=== PATIENT | male | born 1985 | race African-American/Black ===

== ENCOUNTER 2021-05-11 18:32 | Emergency (ER) | payer SELFPAY ==
[~2021-05-11] VITALS: Ht 185 cm; Wt 105.0 kg
[2021-05-11] MEDS ORDERED: KETOROLAC 60 MG/2 ML VIAL IM ONE (19:15)
--- NOTE | 2021-05-11 19:21 | ED Lower Extremity ---
General Chief Complaint: Lower Extremity Stated Complaint: R FOOT BIG TOE PAIN Nursing Triage Note: PT TO ED W/ C/O RT GREAT TOE PAIN ONSET X3 DAYS, WORSE TODAY. PT REPORTS HE BROKE HIS TOE IN LONG TERM IN 2017 ET "IT SOMETIMES STARTS HURTING". PT DENIES INJURY AT THIS TIME. Source: patient Exam Limitations: no limitations History of Present Illness Date Seen by Provider: May 11, 2021 Time Seen by Provider: 19:20 Initial Comments Right great toe pain x3 days. no know injury. Onset: just prior to arrival Severity: moderate Pain/Injury Location: right 1st toe Method of Injury: unknown Allergies and Home Medications Allergies Coded Allergies: No Known Drug Allergies (Unverified , 05/11/21) Patient Home Medication List Home Medication List Reviewed: Yes Review of Systems Constitutional: see HPI; No chills, No fever EENTM: see HPI Respiratory: no symptoms reported Cardiovascular: no symptoms reported Genitourinary: no symptoms reported Musculoskeletal: see HPI Skin: no symptoms reported Psychiatric/Neurological: No Symptoms Reported Past Tvloxai-Mevncc-Fxfjek Hx Patient Social History Tobacco Use?: Yes Tobacco type used: Cigarettes Smoking Status: Current Everyday Smoker Use of E-Cig and/or Vaping dev: No Substance use?: No Alcohol Use?: No Pt feels they are or have been: No Past Medical History Surgery/Hospitalization HX: DENIED Physical Exam Vital Signs Vital Signs - First Documented 05/11/21 18:58 Temp 37.0 Pulse 119 Resp 20 B/P (MAP) 167/111 (129) Pulse Ox 98 Capillary Refill : Less Than 3 Seconds Height, Weight, BMI Height: '" Weight: lbs. oz. kg; 30.00 BMI Method: General Appearance: WD/WN, no apparent distress Neck: non-tender, full range of motion Respiratory: no respiratory distress, no accessory muscle use Hips: bilateral hip non-tender, bilateral hip normal inspection, bilateral hip normal range of motion Legs: bilateral leg non-tender, bilateral leg normal inspection, bilateral leg normal range of motion Knees: bilateral knee non-tender, bilateral knee normal inspection, bilateral knee normal range of motion Ankles: bilateral ankle non-tender, bilateral ankle normal inspection, bilateral ankle normal range of motion Feet: right foot other (The first MTP joint right foot there is some erythema, slight edema. This is likely podagra.) Neurologic/Psychiatric: alert, normal mood/affect, oriented x 3 Skin: normal color, warm/dry Progress/Results/Core Measures Results/Orders My Orders Orders - MONICA FISH APRN Foot, Right, 3 View (05/11/21 19:03) Ketorolac Injection (Toradol Injection) (05/11/21 19:15) Vital Signs/I&O 05/11/21 18:58 Temp 37.0 Pulse 119 Resp 20 B/P (MAP) 167/111 (129) Pulse Ox 98 Blood Pressure Mean: 129 Departure Impression Primary Impression: Podagra Disposition: 01 HOME, SELF-CARE Condition: Stable Departure-Patient Inst. Decision time for Depature: 19:25 Referrals: NO,LOCAL PHYSICIAN (PCP/Family) Primary Care Physician Patient Instructions: Gout, Low Purine Diet Add. Discharge Instructions: 1. Medication as directed follow-up with your doctor next week. All discharge instructions reviewed with patient and/or family. Voiced understanding. Scripts Prednisone (Prednisone) 20 Mg Tab 40 MG PO DAILY, #6 TAB 0 Refills Prov: MONICA FISH APRN 05/11/21 MONICA FISH APRN May 11, 2021 19:21
[2021-05-11] MEDS ORDERED: PRD20T PO (19:27)
--- NOTE | 2021-05-11 19:29 | Diagnostic Imaging Report ---
INDICATION: Great toe injury. COMPARISON: None. EXAMINATION: Three views of the right foot were obtained. FINDINGS: No fracture or dislocation. Articular surfaces are normal. No foreign body is seen. IMPRESSION: No fracture identified. Dictated by: Dictated on workstation # [id number]
[2021-05-11 20:09] VITALS: BP 165/115
== END 2021-05-11 20:10 | disposition home or self-care (01) ==
LOC: ER 18:38
DX: M10.9 Gout, unspecified (principal); F17.210 Nicotine dependence, cigarettes, uncomplicated
CPT/HCPCS: 73630

== ENCOUNTER 2022-03-24 16:55 | Emergency (ER) | payer SELFPAY ==
[~2022-03-24] VITALS: Ht 182 cm; Wt 113.0 kg
[~2022-03-24 16:55] MED LIST: PRD20T PO
[2022-03-24 17:01] VITALS: BP 166/107
--- NOTE | 2022-03-24 17:16 | ED General ---
General Chief Complaint: General Problems/Pain Stated Complaint: GOUT PAIN Nursing Triage Note: PT TO ED W/ C/O RT ANKLE PAIN R/T "GOUT" PER PT. PT ALSO C/O BILAT ANKLE SWELLING ONSET X"A FEW WEEKS". NO OTHER C/O VOICED. Source of Information: Patient, Family (girlfriend) Exam Limitations: No Limitations (JESSENIA CESAR MD) History of Present Illness Date Seen by Provider: March 24, 2022 Time Seen by Provider: 17:00 Initial Comments Patient is a 36-year-old male who presents to the emergency room with a chief complaint of right ankle pain over the course of the last 2 days. Patient states that he feels like it may have been coming on "a week or so". He states that he has been told he has gout in his toes. He has had swelling and pain in his ankles before and just assumed it was gout. He states he has never had any blood drawn or joint fluid removed to confirm the diagnosis. He cannot recall any triggers that might have caused the joint pain and swelling. His girlfriend who is at the bedside states at one point that he when he had ankle pain he was given a water pill and took that and the fluid went away. He denies shortness of breath or chest pain. He states he knows he has high blood pressure but he is never had an evaluation or treatment for it. He does smoke. No current chest pain or shortness of breath no abdominal pain nausea. No swelling in his legs, just pain and swelling in his right ankle. All other review of systems reviewed and negative except as stated. Timing/Duration: 1 Week Severity: Severe Modifying Factors: worse with Movement Associated Systoms: Denies Symptoms (JESSENIA CESAR MD) Allergies and Home Medications Allergies Coded Allergies: No Known Drug Allergies (Unverified , 05/11/21) Patient Home Medication List Home Medication List Reviewed: Yes (JESSENIA CESAR MD) Prednisone (Prednisone) 20 Mg Tab, 40 MG PO DAILY Prescribed by: MONICA FISH on 05/11/211926 Review of Systems Review of Systems Constitutional: see HPI EENTM: no symptoms reported Respiratory: no symptoms reported Cardiovascular: no symptoms reported Gastrointestinal: no symptoms reported Musculoskeletal: joint pain (right ankle) Skin: no symptoms reported Psychiatric/Neurological: No Symptoms Reported (JESSENIA CESAR MD) All Other Systems Reviewed Negative Unless Noted: Yes (JESSENIA CESAR MD) Past Ijehrfb-Fvahhi-Vjdvwi Hx Patient Social History Tobacco Use?: Yes Tobacco type used: Cigarettes Smoking Status: Current Everyday Smoker Use of E-Cig and/or Vaping dev: No Substance use?: No Alcohol Use?: No Pt feels they are or have been: No (JESSENIA CESAR MD) Past Medical History Surgery/Hospitalization HX: GOUT, HTN (JESSENIA CESAR MD) Physical Exam Vital Signs Vital Signs - First Documented 03/24/22 17:01 Temp 36.7 Pulse 112 Resp 20 B/P (MAP) 166/107 (126) Pulse Ox 99 O2 Delivery Room Air (MONICA FISH APRN) Vital Signs Capillary Refill : Less Than 3 Seconds (JESSENIA CESAR MD) Height, Weight, BMI Height: '" Weight: lbs. oz. kg; 34.00 BMI Method: General Appearance: No Apparent Distress, WD/WN Eyes: Bilateral Eye Normal Inspection, Bilateral Eye PERRL, Bilateral Eye EOMI HEENT: PERRL/EOMI Neck: Normal Inspection Respiratory: Lungs Clear, Normal Breath Sounds, No Accessory Muscle Use, No Respiratory Distress Cardiovascular: Regular Rate, Rhythm, Normal Peripheral Pulses, Tachycardia Gastrointestinal: Non Tender, Soft Extremity: Normal Capillary Refill, Normal Range of Motion, Other (edema right ankle. good ROM (he states it hurts); normal DP pulse. ankle is not red or warm) Neurologic/Psychiatric: Alert, Oriented x3, No Motor/Sensory Deficits, Normal Mood/Affect, deputy clerk II-XII Norm as Tested Skin: Normal Color, Warm/Dry (JESSENIA CESAR MD) Progress/Results/Core Measures Suspected Sepsis SIRS Temperature: Pulse: 112 Respiratory Rate: 20 Laboratory Tests 03/24/22 17:36: Blood Pressure 166 /107 Mean: 126 Laboratory Tests 03/24/22 17:36: (JESSENIA CESAR MD) Results/Orders Lab Results Laboratory Tests Test 03/24/22 17:36 Range/Units White Blood Count 8.2 4.3-11.0 10^3/uL Red Blood Count 4.88 4.30-5.52 10^6/uL Hemoglobin 12.8 L 13.3-17.7 g/dL Hematocrit 39 L 40-54 % Mean Corpuscular Volume 79 L 80-99 fL Mean Corpuscular Hemoglobin 26 25-34 pg Mean Corpuscular Hemoglobin Concent 33 32-36 g/dL Red Cell Distribution Width 14.2 10.0-14.5 % Platelet Count 267 130-400 10^3/uL Mean Platelet Volume 9.7 9.0-12.2 fL Immature Granulocyte % (Auto) 1 % Neutrophils (%) (Auto) 59 42-75 % Lymphocytes (%) (Auto) 26 12-44 % Monocytes (%) (Auto) 7 0-12 % Eosinophils (%) (Auto) 7 0-10 % Basophils (%) (Auto) 1 0-10 % Neutrophils # (Auto) 4.9 1.8-7.8 10^3/uL Lymphocytes # (Auto) 2.1 1.0-4.0 10^3/uL Monocytes # (Auto) 0.6 0.0-1.0 10^3/uL Eosinophils # (Auto) 0.6 H 0.0-0.3 10^3/uL Basophils # (Auto) 0.1 0.0-0.1 10^3/uL Immature Granulocyte # (Auto) 0.1 0.0-0.1 10^3/uL Percent Immature Platelet Fraction 3.8 0.0-7.6 % (MONICA FISH APRN) My Orders Orders - MONICA FISH APRN Cbc With Automated Diff (03/24/22 17:04) Basic Metabolic Panel (03/24/22 17:04) (MONICA FISH APRN) Vital Signs/I&O 03/24/22 17:01 Temp 36.7 Pulse 112 Resp 20 B/P (MAP) 166/107 (126) Pulse Ox 99 O2 Delivery Room Air (MONICA FISH APRN) Vital Signs/I&O Capillary Refill : Less Than 3 Seconds (JESSENIA CESAR MD) Blood Pressure Mean: 126 Progress Note : Time: 17:48 Progress Note Patient is quite hypertensive and tachy. His exam is not really consistent with that of gout. He denies any other cardiopulmonary symptoms - other than the ankle swelling. Am going to check basic labs and a uric acid. I dont think he has enough effusion to be able to easily get a tap of the ankle joint. CLinically the ankle is not warm or red (consistent with gout). He may have another type of arthritis. Kathryn encouraged him to follow up with community health, we talked about the dangers of HTN and smoking. (JESSENIA CESAR MD) Counseling-Symptomatic: 3-10 Minutes (JESSENIA CESAR MD) Departure Communication (Admissions) 1757-patient is sleeping. He is snoring but awakens to verbal stimuli. I discussed with him that I would like to try an ankle arthrocentesis as well as get some more blood as the laboratory sample was only sufficient to get a CBC. It was not enough for the uric acid or kidney function tests. Given his severe hypertension I would like to check kidney function prior to initiating NSAIDs. He states "I cant do no more needles today man". we will have him sign a refusal of services form and discharge home. I will give him a sample of topical diclofenac gel. (MONICA FISH APRN) Impression Primary Impression: Right ankle pain Disposition: 01 HOME, SELF-CARE Condition: Stable Departure-Patient Inst. Decision time for Depature: 17:59 (MONICA FISH APRN) Referrals: NO,LOCAL PHYSICIAN (PCP/Family) Primary Care Physician Patient Instructions: Joint Pain Add. Discharge Instructions: 1. Use Tylenol as directed for pain control as well as the topical anti- inflammatory medication. Return to ER for any concerns. Follow-up with your doctor later this week for recheck. Apply the topical anti-inflammatory cream 4 times a day. All discharge instructions reviewed with patient and/or family. Voiced understanding. JESSENIA CESAR MD March 24, 2022 17:16 MONICA FISH APRN March 24, 2022 17:59
[2022-03-24 17:55] LABS: BASOPHILS # (AUTO) 0.1 10^3/uL (0.0-0.1); BASOPHILS % (AUTO) 1 % (0-10); EOSINOPHILS # (AUTO) 0.6 10^3/uL (0.0-0.3); EOSINOPHILS % (AUTO) 7 % (0-10); HEMATOCRIT 39 % (40-54); HEMOGLOBIN 12.8 g/dL (13.3-17.7); LYMPHOCYTES # (AUTO) 2.1 10^3/uL (1.0-4.0); LYMPHOCYTES % (AUTO) 26 % (12-44); MEAN CORPUSCULAR HEMOGLOBIN 26 pg (25-34); MEAN CORPUSCULAR HGB CONC 33 g/dL (32-36); MEAN CORPUSCULAR VOLUME 79 fL (80-99); MEAN PLATELET VOLUME 9.7 fL (9.0-12.2); MONOCYTES # (AUTO) 0.6 10^3/uL (0.0-1.0); MONOCYTES % (AUTO) 7 % (0-12); NEUTROPHILS # (AUTO) 4.9 10^3/uL (1.8-7.8); NEUTROPHILS % (AUTO) 59 % (42-75); PLATELET COUNT 267 10^3/uL (130-400); WHITE BLOOD COUNT 8.2 10^3/uL (4.3-11.0)
== END 2022-03-24 17:56 | disposition home or self-care (01) ==
LOC: EDUNIT# 16:55 → ER 16:56
DX: M25.571 Pain in right ankle and joints of right foot (principal); R60.0 Localized edema; F17.210 Nicotine dependence, cigarettes, uncomplicated
CPT/HCPCS: 36415; 85025; 99281

== ENCOUNTER 2023-03-20 15:07 | Emergency (ER) | payer SELFPAY ==
[~2023-03-20] VITALS: Ht 182.8 cm; Wt 113.4 kg
[2023-03-20 15:20] VITALS: BP 150/110
[2023-03-20] MEDS ORDERED: KETOROLAC 60 MG/2 ML VIAL IM ONE (15:45)
[2023-03-20] MEDS ORDERED: ORPHENADRINE 60 MG/2 ML (NORFLEX) AMP (ED ONLY) IM ONE (15:45)
--- NOTE | 2023-03-20 15:52 | ED Back Pain ---
General Chief Complaint: Back Problems Stated Complaint: LOWER BACK PAIN Nursing Triage Note: PT TO FT1 BY WC WITH COMPLAINT OF LOW BACK PAIN. GOT OUT OF BED A FEW DAYS AGO AND WAS IN PAIN. DENIES KNOWN INJURY. TOOK TWO OF HIS ROOMMATES GABAPENTIN YESTERDAY, NO RELIEF. Source of Information: Patient Exam Limitations: No Limitations History of Present Illness Date Seen by Provider: March 20, 2023 Time Seen by Provider: 15:28 Initial Comments 37-year-old male presents the ER with complaints of right lower back pain starting yesterday morning upon awakening. He states that he had mild pain when he first woke up, but the pain worsened throughout the day. He denies known injury, but states his bed may not be supportive. Denies radiation of pain into leg. Denies history of sciatica. Denies numbness and tingling in his legs, denies urinary and bowel incontinence. Reports he is able to walk, but he has been using a cane. States he took some of his friend's gabapentin, which did not help. Past medical history includes gout which he takes naproxen as needed. He states he did not think about taking naproxen for this pain. He reports that 2 days before this pain started he was ill with subjective fever and sore throat. Reports that the symptoms have improved, denies any fever over the last 2 days. Allergies and Home Medications Allergies Coded Allergies: No Known Drug Allergies (Unverified , 05/11/21) Patient Home Medication List Home Medication List Reviewed: Yes Cyclobenzaprine HCl (Cyclobenzaprine HCl) 10 Mg Tablet, 10 MG PO TID PRN for prn Prescribed by: Lupe Pike on 03/21/231551 Methylprednisolone (Methylprednisolone Dose Pack) 4 Mg Tab.ds.pk, 4 MG PO UD Prescribed by: Lupe Pike on 03/21/231551 Prednisone (Prednisone) 20 Mg Tab, 40 MG PO DAILY Prescribed by: MONICA FISH on 05/11/211926 Review of Systems Constitutional: see HPI Past Clvxjxs-Tktqyx-Grbazq Hx Patient Social History Tobacco Use?: No Use of E-Cig and/or Vaping dev: No Substance use?: Yes Substance type: Marijuana Alcohol Use?: No Pt feels they are or have been: No Past Medical History Surgery/Hospitalization HX: GOUT, HTN Physical Exam Vital Signs Vital Signs - First Documented 5/26/23 15:20 Pulse 118 Resp 20 B/P (MAP) 150/110 (123) Pulse Ox 97 O2 Delivery Room Air Capillary Refill : Less Than 3 Seconds Height, Weight, BMI Height: '" Weight: lbs. oz. kg; 33.00 BMI Method: General Appearance: No Apparent Distress, WD/WN Neck: Normal Inspection, Supple Cardiovascular: Regular Rate, Rhythm Respiratory: Lungs Clear, Normal Breath Sounds, No Accessory Muscle Use, No Respiratory Distress Back: Normal Inspection, No Vertebral Tenderness, Other (Muscle tenderness to palpation on right lower side) Neurologic/Psychiatric: Alert, Normal Mood/Affect Skin: Normal Color, Warm/Dry Progress/Results/Core Measures Results/Orders My Orders Orders - LUPE PIKE APRN Ketorolac Injection (Toradol Injection) (03/20/23 15:45) Dexamethasone Injection (Decadron Inje (03/20/23 15:45) Orphenadrine Inj (Ed Only) (Norflex Inje (03/20/23 15:45) Vital Signs/I&O 03/20/23 15:20 Pulse 118 Resp 20 B/P (MAP) 150/110 (123) Pulse Ox 97 O2 Delivery Room Air Blood Pressure Mean: 123 Progress Progress Note : Progress Note Patient seen and evaluated, sitting in recliner, no acute distress. Based on exam and symptoms, this is likely muscular pain. Patient has no vertebral tenderness. We will treat with Toradol, Norflex, and Decadron. Will discharge with Medrol Dosepak and muscle relaxer. Patient instructed to take home naproxen. Went back to reevaluate patient. Patient had left the department. He did not tell staff that he was leaving. Patient was alert and oriented, of sound mind. I had discussed with him on arrival the plan would be to give him injections here and the discharge plan would be to prescribe him a Medrol Dosepak and Flexeril for home. He possibly thought that he was supposed to leave after getting the injections. We will continue with prescription for Medrol Dosepak and Flexeril. Departure Impression Primary Impression: Back strain Disposition: AGAINST MEDICAL ADVICE Condition: Stable Departure-Patient Inst. Referrals: NO,LOCAL PHYSICIAN (PCP/Family) Primary Care Physician Scripts Cyclobenzaprine HCl (Cyclobenzaprine HCl) 10 Mg Tablet 10 MG PO TID PRN for prn, #21 TAB 0 Refills Prov: LUPE PIKE APRN 03/21/23 Methylprednisolone (Methylprednisolone Dose Pack) 4 Mg Tab.ds.pk 4 MG PO UD for 6 Days, #21 PKG 0 Refills PER DOSE PACK INSTRUCTIONS Prov: LUPE PIKE APRN 03/21/23 LUPE PIKE APRN March 20, 2023 15:52
[2023-03-21] MEDS ORDERED: CYCL10TA25 PO (15:52)
[2023-03-21] MEDS ORDERED: METH4TAB10 PO (15:52)
== END 2023-03-20 16:15 | disposition left against medical advice (07) ==
LOC: EDUNIT# 15:07 → ER 15:10
DX: S39.012A Strain of muscle, fascia and tendon of lower back, initial encounter (principal); M10.9 Gout, unspecified; Z79.1 Long term (current) use of non-steroidal anti-inflammatories (NSAID); X58.XXXA Exposure to other specified factors, initial encounter
CPT/HCPCS: 99281